=== PATIENT | male | born 1985 | race American Indian/Alaskan Native ===

== ENCOUNTER 2021-11-04 04:28 | Emergency (ER) | payer SELFPAY ==
--- NOTE | 2021-11-04 05:24 | XRay Report ---
LEFT SHOULDER 2 VIEW(S) INDICATION / CLINICAL INFORMATION: dislocated. COMPARISON: None available. FINDINGS: BONES / JOINT(S): Anterior shoulder dislocation. Small fracture fragment left shoulder joint. No sign ificant arthritis. SOFT TISSUES: No significant abnormality. ADDITIONAL FINDINGS: None. IMPRESSION: 1. Anterior shoulder dislocation with small fracture fragment likely arising from the Hill-Sachs impa ction fracture. Postreduction radiographs recommended Signer Name: Brandon Landers MD Signed: 11/04/2021 5:19 AM Workstation Name: [id number]
[2021-11-04] MEDS ORDERED: HYDROmorphone 1 MG/1 ML INJ IV ONE (05:37)
[2021-11-04] MEDS ORDERED: ONDANSETRON 4 MG/2 ML INJ IV ONE (05:38)
[2021-11-04] MEDS ORDERED: KETAMINE 500 MG/5 ML VIAL MDV IV ONE ×2 (06:14→06:30)
[2021-11-04] MEDS ORDERED: propofoL 200 MG/20 ML VIAL IV ONE ×2 (06:14→06:30)
--- NOTE | 2021-11-04 06:16 | Emergency Department Report ---
Upper Extremity - HPI Chief Complaint: Extremity Injury, Upper Stated Complaint: LT SHOULDER PAIN Time Seen by Provider: 11/04/21 06:04 Upper Extremity: Left Shoulder Occurred When: Today Mechanism: Twist Severity: severe Symptoms: Yes Pain with Movement, Yes Deformity, Yes Limited Range of Movement, No Numbness, No Weakness, No Swelling, No Bruising/Ecchymosis, No Laceration or Abrasion Other History: This patient is a pleasant and cooperative 36-year-old gentleman with a history of recurrent shoulder dislocation, who has not eaten for at least the past 6 hours, who presents to the emergency department with a complaint of recurrent left-sided shoulder dislocation. Patient reports that he was in bed, and believes that he twisted, or turned, or perhaps had a family member accidentally sleep on his left shoulder. This is similar to prior episodes of shoulder dislocation. He reports that he typically requires sedation for shoulder reduction. He works in [employer], he is right-handed, he does not have a local orthopedist. In the emergency room, he consented to moderate sedation with closed reduction, please see procedure note, left shoulder was successfully reduced, placed in a shoulder sling/immobilizer,. The patient endorsed complete resolution of symptoms. ED Review of Systems ROS: Stated complaint: LT SHOULDER PAIN Other details as noted in HPI Comment: All other systems reviewed and negative Musculoskeletal: joint swelling, arthralgia, myalgia ED Past Medical Hx - Past Medical History Previous Medical History?: No - Surgical History Past Surgical History?: No - Social History Smoking Status: Never Smoker Substance Use Type: None - Medications Home Medications: Home Medications Medication Instructions Recorded Confirmed Last Taken Type Acetaminophen [Non-Aspirin Extra 500 mg PO Q6HR PRN #30 tablet 11/04/21 Unknown Rx Strength] Ibuprofen [Motrin] 600 mg PO Q8H PRN #30 tablet 11/04/21 Unknown Rx Morphine Sulfate [Morphine Sulfate 7.5 mg PO Q6HR PRN #10 tablet 11/04/21 Unknown Rx IR] Ondansetron [Zofran Odt] 4 mg PO Q8HR PRN #20 tab.rapdis 11/04/21 Unknown Rx Upper Extremity Exam - Exam General: Vital signs noted. No distress. Alert and acting appropriately. No facial droop. Tongue midline. Extraocular movements intact bilaterally. Facial sensation intact to light touch in V1, V2, V3 distribution bilaterally. 5 and a 5 strength in 4 extremities. Sensation intact to light touch in 4 extremities. 2+ pulses noted in the bilateral upper and lower extremities. The right upper extremity is nontender, and the bilateral lower extremities are nontender. Left upper extremity nontender, with the exception of proximal left-sided shoulder deformity and dislocation. Sensation is intact to light touch in the deltoid, median, radial, and ulnar distribution. Thumb opposition, range of motion intact, and finger intrinsics are intact pre and postreduction. Head and Torso: No HEENT Abnormality, No Neck Tenderness, No Chest/Lungs Abnormality, No Abdominal Tenderness, No Back Tenderness Shoulder Exam: Yes Shoulder Tenderness (Left-sided shoulder tenderness and dislocation), Yes Normal Range of Motion in Shoulder (Right shoulder. Left shoulder is dislocated.), Yes Shoulder Deformity (Left shoulder), No Clavicle Te nderness, No AC Joint Tenderness Arm Exam: No Arm/Humerus Tenderness, No Arm Deformity Elbow: Yes Normal Range of Motion in Elbow, No Elbow Tenderness, No Elbow Deformity Forearm: No Forearm Tenderness, No Forearm Deformity, No Pain with Pronation, No Pain with Supination Wrist: Yes Normal ROM in Wrist, No Wrist Tenderness, No Wrist Deformity, No Snuffbox Tenderness, No Pain with Axial Thumb Compression Hand: Yes Normal ROM in Digit(s), No Hand Tenderness, No Hand Deformity, No Digit Tenderness, No Digit(s) Deformity, No Tendon Dysfunction CMS Exam: Yes Normal Distal Pulses, Yes Normal Capillary Refill, Yes Normal Distal Sensation, No Broken Skin ED Course Vital Signs 11/04/21 04:40 Temperature 97.6 F Pulse Rate 87 Respiratory 18 Rate Blood Pressure 145/82 [Left] O2 Sat by Pulse 98 Oximetry - Moderate Sedation Indications: fracture/dislocation redu Presedation Evaluation: Patient has been n.p.o. for greater than 6 hours. Patient reports occasional tobacco use, but no hard drugs. He reports no complications or issues or concerns about anesthesia. Risks, benefits and alternatives discussed regarding moderate sedation for closed reduction, versus local injection, with pareteral opioids. Patient requests moderate sedation. Risks, benefits, alternatives Of each option were discussed with the patient. He articulates understanding. Patient signed written informed consent. A timeout is performed. Patient receives total dose 80 mg of propofol (50 mg, followed by 30 mg), in conjunction with 50 mg of ketamine, all administered by myself, with nursing team recording, and respiratory therapy at the bedside. Sedation time started at 6:24 AM, and ended at 6:28 AM. The patient tolerated the procedure well, with no obvious complications. Please see nursing flowsheet. ASA Class: II Mallampati Airway Score: 1 Preparation: telemetry monitor applied, pulse oximeter, capnometry used, supplemental O2 applied Ketamine: IV Ketamine Dose: 50 IV Propofol Dose (mgs): 80 Complications: none Patient Tolerated Procedure: well - Orthopedic Joint Reduction Joint #1 Consent Obtained: verbal consent, written consent, emergent situation Time Out Performed: Yes Side: left Joint Reduction Location: shoulder Analgesia: moderate sedation Shoulder Technique Used (if applicable): scapula manipulation Technique Used: direct manipulation Post-Reduction Neuro Exam: intact Post-Reduction Vascular Exam: intact Post Reduction X-Ray Obtained: Yes Post Reduction X-Ray Results: reduced Splint Applied: Yes Patient Tolerated Procedure: well - Orthopedic Splinting/Casting Injury #1 Side: left Upper Extremity Injury Location: shoulder Upper Extremity Immobilizer: sling/shoulder immobilize - Pulse Oximetry Interpretation Digit-Finger Initial Pulse Oximetry Readin O2 Sat by Pulse Oximetry: 99 Actions Taken: none ED Medical Decision Making - Lab Data Vital Signs 11/04/21 11/04/21 11/04/21 04:40 06:20 06:26 Temperature 97.6 F Temperature [ 98 F Post-Procedure] Pulse Rate 87 Pulse Rate [ 92 H Post-Procedure] Respiratory 18 Rate Respiratory 23 Rate [Post- Procedure] Blood Pressure 145/82 [Left] Blood Pressure 158/95 [Post-Procedure ] O2 Sat by Pulse 98 100 Oximetry O2 Sat by Pulse 94 Oximetry [Post -Procedure] 11/04/21 06:35 Temperature Temperature [ Post-Procedure] Pulse Rate 55 L Pulse Rate [ Post-Procedure] Respiratory 15 Rate Respiratory Rate [Post- Procedure] Blood Pressure [Left] Blood Pressure [Post-Procedure ] O2 Sat by Pulse Oximetry O2 Sat by Pulse Oximetry [Post -Procedure] - Radiology Data Radiology results: pending, report reviewed, image reviewed LEFT SHOULDER 2 VIEW(S) INDICATION / CLINICAL INFORMATION: dislocated. COMPARISON: None available. FINDINGS: BONES / JOINT(S): Anterior shoulder dislocation. Small fracture fragment left shoulder joint. No significant arthritis. SOFT TISSUES: No significant abnormality. ADDITIONAL FINDINGS: None. IMPRESSION: 1. Anterior shoulder dislocation with small fracture fragment likely arising from the Hill-Sachs impaction fracture. Postreduction radiographs recommended Signer Name: Brandon Landers MD Signed: 11/04/2021 4:19 AM Workstation Name: [id number] LEFT SHOULDER 1 VIEW(S) 6:40 AM INDICATION / CLINICAL INFORMATION: s/p reduction. COMPARISON: Left shoulder 5:03 AM same day FINDINGS: BONES / JOINT(S): Acute moderately displaced Hill-Sachs impaction fracture left humeral head. The left humeral head has been relocated and now projects in expected position with respect to glenoid. No significant arthritis. SOFT TISSUES: No significant abnormality. ADDITIONAL FINDINGS: None. IMPRESSION: 1. Acute moderate-sized Hill-Sachs impaction fracture. 2. Interval reduction of previously noted left anterior shoulder dislocation Signer Name: Brandon Landers MD Signed: 11/04/2021 5:55 AM Workstation Name: [id number] - Medical Decision Making Differential diagnosis, including but not limited to: Recurrent left-sided shoulder dislocation Assessment and plan: 36-year-old gentleman with recurrent shoulder dislocation, presenting with recurrent shoulder dislocation. He is neurovascularly intact. He provided verbal and written informed consent for moderate sedation with closed reduction. Please see procedure notes. Shoulder is successfully reduced. Patient educated as to presence of initial Hill-Sachs deformity, and also educated that he will need to follow-up with outpatient orthopedics likely for rehabilitation, and evaluation of soft tissues involving a left-sided shoulder. He is observed in this department for hours without clinical decompensation, and he reports that his father will pick him up. He is reliable for discharge at this point in time, with a shoulder sling/immobilizer, to follow-up with outpatient orthopedics. Return precautions are reviewed. All questions answered. On final reassessment, neurovascularly intact, ranging the left hand, wrist without difficulty. Critical care attestation.: If time is entered above; I have spent that time in minutes in the direct care of this critically ill patient, excluding procedure time. ED Disposition Clinical Impression: Recurrent dislocation, left shoulder Disposition: HOME / SELF CARE / HOMELESS Is pt being admited?: No Does the pt Need Aspirin: No Condition: Good Instructions: Shoulder Dislocation, [id number], Moderate Conscious Sedation, Adult Additional Instructions: Do not drive or operate motor vehicles for the next 24 hours, and do not consume alcohol or sedating medications or substances for the next 24 hours. Please follow-up with an orthopedic physician within the next week. Please keep the left upper extremity/shoulder immobilizer/sling and in place. Patient has a Hill-Sachs bony deformity on his proximal humerus, likely secondary to recurrent left-sided shoulder dislocation. Patient presented with his deformity upon initial ER evaluation. With recurrent shoulder dislocation, the patient most likely has ligamentous and soft tissue injury to the left upper extremity/shoulder. Therefore, it will be very important to follow-up with outpatient orthopedics for evaluation for physical therapy and possible surgical intervention. For the patient's convenience, local orthopedic physicians have been listed that he may follow-up with. The patient may not lift or perform any strenuous physical activity with the left upper extremity. Please take the pain medications as needed and directed. If taking the morphine sulfate for pain, which should only be for severe breakthrough pain, do not drive, consume alcohol, or make important decisions. Exercise caution when taking this medication, as it may be habit-forming and addictive. Please return to the emergency room right away with new pain, worsened pain, migration of pain, projectile vomiting, change in mental status, confusion, inability tolerate liquid feeds, new, worsened or different symptoms not present on the initial emergency room evaluation Referrals: [facility] [Provider Group] - 3-5 Days DEREK GEIGER MD [Staff Physician] - 3-5 Days DIANNE PRASAD MD [Staff Physician] - 3-5 Days Forms: Work/School Release Form(ED)
[2021-11-04 06:50] VITALS: BP 158/95
--- NOTE | 2021-11-04 07:00 | XRay Report ---
LEFT SHOULDER 1 VIEW(S) 6:40 AM INDICATION / CLINICAL INFORMATION: s/p reduction. COMPARISON: Left shoulder 5:03 AM same day FINDINGS: BONES / JOINT(S): Acute moderately displaced Hill-Sachs impaction fracture left humeral head. The lef t humeral head has been relocated and now projects in expected position with respect to glenoid. No s ignificant arthritis. SOFT TISSUES: No significant abnormality. ADDITIONAL FINDINGS: None. IMPRESSION: 1. Acute moderate-sized Hill-Sachs impaction fracture. 2. Interval reduction of previously noted left anterior shoulder dislocation Signer Name: Brandon Landers MD Signed: 11/04/2021 6:55 AM Workstation Name: [id number]
== END 2021-11-04 08:00 | disposition home or self-care (01) ==
LOC: ED 04:28
DX: S43.005A Unspecified dislocation of left shoulder joint, initial encounter (principal); X58.XXXA Exposure to other specified factors, initial encounter; Y93.89 Activity, other specified; Y92.89 Other specified places as the place of occurrence of the external cause; Y99.8 Other external cause status
CPT/HCPCS: 23650; 73020; 73030; 96374; 96375; 99283; J1170; J2405; J2704; J3490